=== PATIENT | female | born 1980 | race Caucasian/White ===

== ENCOUNTER 2018-06-21 08:01 | Emergency (ER) | payer SELFPAY ==
[2018-06-21 08:05] VITALS: BP 156/94; PULSE 85; TEMP 98.8; BMI 34.3
--- NOTE | 2018-06-21 08:53 | PDOC ---
History of Present Illness - General Chief Complaint: Ear Problem Stated Complaint: EAR PAIN Time Seen by Provider: 06/21/18 08:18 History Source: Patient Exam Limitations: No Limitations - History of Present Illness Initial Comments: 06/21/18 09:15 Patient came for evaluation of worsening left ear pain. States has been painful for 2 weeks however 2 days ago became much more so and noted some clear drainage from same. States, but has had no fever. No one else at home is sick. Has taken only Tylenol for pain relief. Timing/Duration: unsure, getting worse Severity: mild, moderate Modifying Factors: improves with: medication Associated Symptoms: reports: denies symptoms, fever/chills Past History - Travel Traveled outside of the country in the last 30 days: No Close contact w/someone who was outside of country & ill: No - Past Medical History Allergies/Adverse Reactions: Allergies Allergy/AdvReac Type Severity Reaction Status Date / Time No Known Allergies Allergy Verified 06/21/18 08:03 Home Medications: Ambulatory Orders Amoxicillin - [Amoxicillin 500mg Capsule -] 500 mg PO TID #21 capsule 06/21/18 COPD: No - Suicide/Smoking/Psychosocial Hx Smoking History: Never smoked Review of Systems - Review of Systems Able to Perform ROS?: Yes Is the patient limited Lao proficient: Yes Constitutional: Yes: Symptoms Reported, See HPI, Loss of Appetite, Malaise. No : Fever HEENTM: Yes: Symptoms Reported, See HPI, Ear Pain, Ear Discharge Respiratory: Yes: See HPI. No: Symptoms reported, Cough Cardiac (ROS): No: Symptoms Reported ABD/GI: No: Symptoms Reported Musculoskeletal: No: Symptoms Reported Integumentary: Yes: See HPI. No: Symptoms Reported All Other Systems: Reviewed and Negative *Physical Exam - Vital Signs Last Vital Signs Temp Pulse Resp BP Pulse Ox 98.8 F 85 18 156/94 98 06/21/18 08:04 06/21/18 08:04 06/21/18 08:04 06/21/18 08:04 06/21/18 08:04 - Physical Exam General Appearance: Yes: Nourished, Appropriately Dressed, Apparent Distress, Mild Distress HEENT: positive: CATA, TMs Normal (unable to visualize left TM due to swelling and purulent drainage from left canal. No mastoid tenderness but has some mild swelling to pinna) Neck: positive: Tender, Supple, Lymphadenopathy (R), Lymphadenopathy (L) Respiratory/Chest: positive: Lungs Clear. negative: Chest Tender Musculoskeletal: positive: Normal Inspection Extremity: positive: Normal Capillary Refill Integumentary: positive: Normal Color, Dry, Warm, Pale Neurologic: positive: calculus tutor II-XII NML intact, Fully Oriented, Alert, Normal Mood/ Affect, Normal Response, Motor Strength 5/5 *DC/Admit/Observation/Transfer Diagnosis at time of Disposition: Otitis externa Qualifiers: Otitis externa type: unspecified type Chronicity: acute Laterality: left Qualified Code(s): H60.502 - Unspecified acute noninfective otitis externa, left ear - Discharge Dispostion Disposition: HOME Condition at time of disposition: Stable Decision to Admit order: No - Referrals Referrals: Billie Hope MD [Primary Care Provider] - Srinivasan Willis MD [Staff Physician] - - Patient Instructions Printed Discharge Instructions: DI for Otitis Externa Additional Instructions: Rest, lots of fluids; water, teas, soups Hot wet soaks to ear/hot packs may help relieve some pain May use [id number] anesthetic drops to ears to help relieve some pain Avoid getting water in ear, may use alcohol drops to help dry up any water retained in ears Severe using earplugs when swimming to avoid any water retention Continue ibuprofen or Tylenol for pain and fevers Cortisporin otic solution 3-5 drops 3 times a day for 5 days Amoxicillin 500 mg tablet every 8 hours for one week followup with private physician / ENT doctor in 2-3 days Return to emergency department or see private physician immediately for swelling , redness, from ears, or fevers, - Post Discharge Activity Forms/Work/School Notes: Back to Work
[2018-06-21] MEDS ORDERED: NEOMYCIN/POLYMYXN/HC OTIC SUSPENSION 10 ML BOTTLE AS ONE (09:02)
[2018-06-21] MEDS ORDERED: NEOMYCIN/POLYMYXN/HC OTIC SOLUTION 10 ML BOTTLE ONE (09:05)
== END 2018-06-21 09:26 | disposition home or self-care (01) ==
LOC: JERFT 08:01
DX: H60.502 Unspecified acute noninfective otitis externa, left ear (principal)
CPT/HCPCS: 99281-25

== ENCOUNTER 2022-04-13 08:11 | Emergency (ER) | payer BC, OTHER ==
[2022-04-13 08:23] VITALS: BP 127/81; PULSE 74; TEMP 98; BMI 38.9
== END 2022-04-13 08:58 | disposition home or self-care (01) ==
LOC: JERFT 08:11
DX: H60.92 Unspecified otitis externa, left ear (principal)
CPT/HCPCS: 99283-25

== ENCOUNTER 2022-06-22 22:17 | Inpatient (IN) | payer OTHER ==
[2022-06-22 22:31] VITALS: BMI 38.9
[2022-06-23] MEDS ORDERED: VANCOMYCIN/WATER 2 GM/400 ML PREMIX BAG IVPB ONE ×3 (01:15→21:00)
[2022-06-23 01:41] LABS: BASO % 0.3 % (0-2.0); EOS % 1.7 % (0-4.5); HEMATOCRIT 31.9 % (32.4-45.2); HEMOGLOBIN 10.7 GM/dL (10.7-15.3); LYMPH % 16.8 % (8-40); MCHC 33.5 g/dl (32.0-36.0); MEAN CELL VOLUME 83.6 fl (80-96); MEAN PLT VOLUME 8.8 fl (7.5-11.1); MONO % 10.4 % (3.8-10.2); NEUT % 70.8 % (42.8-82.8); PLATELET COUNT 263 10^3/uL (134-434); RBC 3.82 M/mm3 (3.60-5.2); RDW 14.9 % (11.6-15.6)
[2022-06-23 01:58] LABS: INR 1.08 (0.83-1.09); PROTHROMBIN TIME (PATIENT) 12.4 SEC (9.7-13.0)
[2022-06-23 02:01] LABS: CALCIUM 8.9 mg/dL (8.5-10.1)
[2022-06-23 02:05] LABS: CREATININE 0.6 mg/dL (0.55-1.3)
[2022-06-23 02:06] LABS: BILIRUBIN,TOTAL 0.5 mg/dL (0.2-1)
[2022-06-23 02:07] LABS: TOT PROT 7.7 g/dl (6.4-8.2)
[2022-06-23 02:23] LABS: BLOOD UREA NITROGEN 9.9 mg/dL (7-18)
[2022-06-23] MEDS ORDERED: CEFEPIME HCL/D5W 2 GM/50 ML BAG IVPB ONE (02:35)
[2022-06-23] MEDS ORDERED: CEFEPIME 2 GM/100 ML BAG IVPB ONE (02:38)
[2022-06-23 02:56] LABS: ERYTHROCYTE SEDIMENTATION RATE 31 mm/hr (0-20)
[2022-06-23] MEDS ORDERED: SODIUM CHLORIDE 1,000 ML IV STA (02:59)
[2022-06-23] MEDS ORDERED: ACETAMINOPHEN 1000 MG/100 ML BAG IVPB ONE (03:58)
[2022-06-23] MEDS ORDERED: ACETAMINOPHEN INJECTION 100 ML IVPB ONE (03:59)
[2022-06-23] MEDS: ENOXAPARIN NA (PORCINE) 40 MG/0.4 ML DISP.SYRIN SQ SCH ×2 (10:46→21:25)
[2022-06-23] MEDS: CEFEPIME 2 GM in DEXTROSE 5%-WATER 100 ML IVPB SCH ×2 (10:53→21:24)
[2022-06-24 08:28] LABS: BASO % 0.6 % (0-2.0); EOS % 4.4 % (0-4.5); HEMATOCRIT 32.4 % (32.4-45.2); HEMOGLOBIN 10.7 GM/dL (10.7-15.3); LYMPH % 25.3 % (8-40); MCH 27.3 pg (25.7-33.7); MEAN CELL VOLUME 82.8 fl (80-96); MEAN PLT VOLUME 9.1 fl (7.5-11.1); MONO % 9.4 % (3.8-10.2); NEUT % 60.3 % (42.8-82.8); PLATELET COUNT 265 10^3/uL (134-434); RBC 3.91 M/mm3 (3.60-5.2); RDW 14.9 % (11.6-15.6); WHITE BLOOD COUNT 5.9 K/mm3 (4.0-10.0)
[2022-06-24 08:50] LABS: BLOOD UREA NITROGEN 9.2 mg/dL (7-18); CALCIUM 8.3 mg/dL (8.5-10.1); MAGNESIUM 2.2 mg/dL (1.8-2.4)
[2022-06-24 08:53] LABS: CREATININE 0.6 mg/dL (0.55-1.3); PHOSPHOROUS 2.9 mg/dL (2.5-4.9)
[2022-06-24 08:54] LABS: TOT PROT 6.6 g/dl (6.4-8.2)
[2022-06-24 08:55] LABS: BILIRUBIN,TOTAL 0.5 mg/dL (0.2-1)
[2022-06-24 08:58] LABS: ALBUMIN 3.2 g/dl (3.4-5.0)
[2022-06-24] MEDS ORDERED: predniSONE 10 MG TABLET (UD) PO SCH (10:00)
[2022-06-24] MEDS: ENOXAPARIN NA (PORCINE) 40 MG/0.4 ML DISP.SYRIN SQ SCH (10:36)
[2022-06-24] MEDS: CEFEPIME 2 GM in DEXTROSE 5%-WATER 100 ML IVPB SCH (10:38)
[2022-06-24 14:12] VITALS: BP 119/65; PULSE 72; RESP 20; TEMP 98.9
== END 2022-06-24 17:44 | disposition home or self-care (01) | DRG 113 ==
LOC: JERFT 22:17 → JERBED 06-23 00:52 → J7W 06-23 08:13
PROVIDERS: ADMIT Hospitalist; ATTEND Internal Medicine
DX: H70.92 Unspecified mastoiditis, left ear (principal); H91.8X2 Other specified hearing loss, left ear; H92.02 Otalgia, left ear; H60.8X2 Other otitis externa, left ear
CPT/HCPCS: 36415; 70470-TC; 70481-TC; 80048; 80053; 82962; 83735; 84100; 84703; 85025; 85610; 85651; 85730; 86140; 86850; 86900; 86901; 93005; 93010; 99285-25; C9803-CS; Q9967; U0003; U0005